=== PATIENT | female | born 1955 | race Caucasian/White ===

== ENCOUNTER → 2016-09-12 | Outpatient (CLI) | payer OTHER | LOC: CIMAGING 14:53 | PROVIDERS: ATTEND Family Medicine | DX: Z12.31 Encounter for screening mammogram for malignant neoplasm of breast (principal) | CPT/HCPCS: G0202 ==

== ENCOUNTER → 2016-10-24 | Outpatient (CLI) | payer OTHER | LOC: CIMAGING 08:36 | PROVIDERS: ATTEND Family Medicine | DX: M54.2 Cervicalgia (principal); M12.9 Arthropathy, unspecified | CPT/HCPCS: 72040-PO ==

== ENCOUNTER → 2018-03-12 | Outpatient (CLI) | payer BC | LOC: CIMAGING 14:16 | PROVIDERS: ATTEND Family Medicine | DX: Z12.31 Encounter for screening mammogram for malignant neoplasm of breast (principal) ==